=== PATIENT | male | born 1990 | race Two or more races ===

== ENCOUNTER 2017-09-05 23:39 | Emergency (ER) | payer OTHER ==
[~2017-09-05] VITALS: Ht 182.9 cm; Wt 89.0 kg
[2017-09-05 23:40] VITALS: BP 137/91
== END 2017-09-06 00:20 ==
LOC: ER 23:40
DX: F10.129 Alcohol abuse with intoxication, unspecified (principal); V89.2XXA Person injured in unspecified motor-vehicle accident, traffic, initial encounter; Y93.89 Activity, other specified; Y92.89 Other specified places as the place of occurrence of the external cause; Y99.8 Other external cause status
CPT/HCPCS: 99284